=== PATIENT | male | born 1930 | race Caucasian/White ===

== ENCOUNTER 2017-07-20 19:33 | Emergency (ER) | payer OTHER ==
--- NOTE | 2017-07-20 19:40 | PDOC ---
History of Present Illness - General History Source: Patient Exam Limitations: No Limitations - History of Present Illness Initial Comments: 07/20/17 19:55 The patient is a 87 year old male with a significant past medical history of prostate CA, HTN, who presents to the ED with right eye irritation. Patient states the eye feels funny. Son noted abnormal appearing area under the eye. He suggested his father to come into the ED for evaluation. Denies tearing, discharge, crusting. Patient denies fever, chills, cough, nausea, vomiting, diarrhea. Takes a baby aspirin every morning. OD: 20/40 with glasses OS: 20/40 with glasses <Chalo Fisher - Last Filed: 07/20/17 20:05> <Heidi Angel - Last Filed: 07/24/17 03:34> - General Chief Complaint: Eye Problem Stated Complaint: C/O SWELLING TO LEFT EYE Time Seen by Provider: 07/20/17 19:35 Past History <Chalo Fisher - Last Filed: 07/20/17 20:05> - Past Medical History Cardiac Disorders: Yes HTN: Yes Hypercholesterolemia: Yes - Psycho/Social/Smoking Cessation Hx Suicidal Ideation: No Smoking Status: No Number of Cigarettes Smoked Daily: 0 <Heidi Angel - Last Filed: 07/24/17 03:34> - Past Medical History Allergies/Adverse Reactions: Allergies Allergy/AdvReac Type Severity Reaction Status Date / Time No Known Allergies Allergy Verified 07/20/17 19:35 Home Medications: Ambulatory Orders Unobtainable [Unobtainable] 07/20/17 Review of Systems - Review of Systems Able to Perform ROS?: Yes Comments:: 07/20/17 19:55 GENERAL/CONSTITUTIONAL: No fever or chills. No weakness. HEAD, EYES, EARS, NOSE AND THROAT: + right eye discomfort. No ear pain or discharge. No sore throat. CARDIOVASCULAR: No chest pain or shortness of breath. RESPIRATORY: No cough, wheezing, or hemoptysis. GASTROINTESTINAL: No nausea, vomiting, diarrhea or constipation. GENITOURINARY: No dysuria, frequency, or change in urination. MUSCULOSKELETAL: No joint or muscle swelling or pain. No neck or back pain. SKIN: No rash NEUROLOGIC: No headache, vertigo, loss of consciousness, or change in strength/ sensation. ENDOCRINE: No increased thirst. No abnormal weight change. HEMATOLOGIC/LYMPHATIC: No anemia, easy bleeding, or history of blood clots. ALLERGIC/IMMUNOLOGIC: No hives or skin allergy. <Chalo Fisher - Last Filed: 07/20/17 20:05> *Physical Exam - Vital Signs Last Vital Signs Temp Pulse Resp BP Pulse Ox 98 F 80 16 179/94 93 L 07/20/17 19:37 07/20/17 19:37 07/20/17 19:37 07/20/17 19:37 07/20/17 19:37 - Physical Exam Comments: 07/20/17 19:56 GENERAL: The patient is awake, alert, and fully oriented, in no acute distress. HEAD:[Normal with no signs of trauma. EYES: Subconjunctival hemorrhage of the lateral aspect of the right eye. Pupils equal, round and reactive to light, extraocular movements intact, sclera anicteric. EXTREMITIES: Normal range of motion, no edema. NEUROLOGICAL: Normal speech, normal gait. PSYCH: Normal mood, normal affect. SKIN: Warm, Dry, normal turgor, no rashes or lesions noted. <Chalo Fisher - Last Filed: 07/20/17 20:05> Medical Decision Making - Medical Decision Making Documentation has been prepared under my direction and personally reviewed by me in its entirety. I attest that this documented accurately reflects all work, treatment, procedures and medical decision making performed by me. As noted above, this 87-year-old man presents with a sub-conjunctival hemorrhage in his eye. There is no other abnormality seen on exam and patient has no other complaints. Patient was discharged with instructions to continue artificial tears to the eye and to follow-up with field crop grower (Dr. Chanel/Dr. Nix group) within 3 days <Heidi Angel - Last Filed: 07/24/17 03:34> *DC/Admit/Observation/Transfer - Attestations Scribe Attestion: 07/20/17 19:56 Documentation prepared by Chalo Fisher, acting as medical biller for Heidi Angel MD. <Chalo Fisher - Last Filed: 07/20/17 20:05> <Heidi Angel - Last Filed: 07/24/17 03:34> Diagnosis at time of Disposition: Subconjunctival hemorrhage of right eye - Discharge Dispostion Disposition: HOME Condition at time of disposition: Stable - Referrals Referrals: Nacho Weiss MD [Primary Care Provider] - Kuldeep Chanel MD [Staff Physician] - 3 days - Patient Instructions Printed Discharge Instructions: DI for Subconjunctival Hemorrhage Additional Instructions: Artificial tears to both eyes twice a day Can also use cool compresses to the outside of the eyes as needed for discomfort Follow-up with field crop grower (Dr. Chanel/Dr. Nix) within 3 days Return to ER if you have worsening pain/difficulty with vision/discharge or crusting in eyes
[2017-07-20 19:41] VITALS: BP 179/94; PULSE 80; TEMP 98; BMI 25.6
[2017-07-20] MEDS ORDERED: TETRACAINE 0.5% OPHTH SOLN 2 ML BOTTLE ONE (19:53)
[2017-07-20] MEDS ORDERED: FLUORESCEIN NA 1 EA STRIP ONE (19:54)
== END 2017-07-20 20:21 | disposition home or self-care (01) ==
LOC: FER 19:33
DX: H11.31 Conjunctival hemorrhage, right eye (principal); Z85.46 Personal history of malignant neoplasm of prostate; I10 Essential (primary) hypertension; E78.00 Pure hypercholesterolemia, unspecified
CPT/HCPCS: 99281-25

== ENCOUNTER 2018-02-16 17:05 | Inpatient (IN) | payer OTHER ==
--- NOTE | 2018-02-16 17:18 | PDOC ---
History of Present Illness - General Chief Complaint: Altered Mental Status Stated Complaint: AMS Time Seen by Provider: 02/16/18 17:15 History Source: Patient - History of Present Illness Initial Comments: 02/16/18 17:49 44 y.o. male with a PMH of HTN, Prostate CA (currently receiving hormone therapy ) presents to the ED with family c/o 3 day h/o increased AMS. As per patient's daughter in law @ bedside, patient has been confused for the past three days and this morning at 3 a.m. patient's son found him standing up, smacking his lips and confused as to who he was and where he was. At presentation patient has remote history intact (can recall spouse name, anniversary, names of grandchildren) but non-intact recent memory including what he ate for breakfast, the name of President, why he is at the hospital. ROS is positive for cough with pinkish sputum and daughter in law notes decreased appetite however no weight loss. Patient denies any recent trauma, fever/chills, chest pain, shortness of breath , abdominal pain, nausea/vomiting, constipation/diarrhea, dysuria/hematuria as well as recent travel or sick contacts. NKDA Social: previous nicotine use (40+ years of 2+ ppd), denies alcohol, denies recreational drugs PMD: Dr. Weiss 02/16/18 19:15 Past History - Past Medical History Allergies/Adverse Reactions: Allergies Allergy/AdvReac Type Severity Reaction Status Date / Time No Known Allergies Allergy Verified 02/16/18 17:06 Home Medications: Ambulatory Orders Hydrochlorothiazide [Hctz -] 25 mg PO DAILY 02/16/18 Lisinopril 10 mg PO DAILY 02/16/18 Verapamil HCl [Verapamil ER] 240 mg PO DAILY 02/16/18 Cardiac Disorders: Yes HTN: Yes Hypercholesterolemia: Yes - Suicide/Smoking/Psychosocial Hx Smoking Status: No Smoking History: Never smoked Have you smoked in the past 12 months: No Number of Cigarettes Smoked Daily: 0 Hx Alcohol Use: No Drug/Substance Use Hx: No Substance Use Type: None Review of Systems - Review of Systems Constitutional: No: Chills, Fever HEENTM: No: Recent change in vision Respiratory: Yes: Cough (productive, pinkish sputum). No: Shortness of Breath, Stridor, Wheezing Cardiac (ROS): No: Chest Pain, Lightheadedness, Palpitations, Syncope ABD/GI: No: Constipated, Diarrhea, Nausea, Vomiting : No: Burning, Dysuria Neurological: No: Headache, Numbness, Tingling, Ataxia, Dizziness *Physical Exam - Physical Exam General Appearance: Yes: Nourished, Thin HEENT: positive: EOMI, PARKER Neck: positive: Trachea midline, Supple Respiratory/Chest: positive: Lungs Clear. negative: Labored Respiration, Rapid RR Cardiovascular: positive: S1, S2. negative: Edema, JVD Gastrointestinal/Abdominal: positive: Normal Bowel Sounds, Soft. negative: Distended, Guarding, Rebound, Tenderness, Hernia, Mass Musculoskeletal: negative: CVA Tenderness (R), CVA Tenderness (L) Extremity: positive: Normal Capillary Refill, Normal Inspection. 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 male presents with AMS. On PE patient is pleasant, alert, with remote history intact but confused about why he is at the hospital and cannot recall basic details of his daily life. DDX includes TIA, brain bleed, electrolyte derangement, malignancy. Will obtain Head CT, CXR, EKG, CBC, CMP, Mg, UA/Urine culture. 02/16/18 19:[address] shows areas of vasogenic edema in L frontal and R parietal lobe c/w likely brain mets. Labs pending. Likely disposition is admission to inpatient medicine service for MRI. Neurology consult pending. Patient and patient's daughter in law @ bedside counseled on POC. Patient signed out to Dr. Gandhi (Attending) *DC/Admit/Observation/Transfer Diagnosis at time of Disposition: Altered mental status - Referrals - Patient Instructions - Post Discharge Activity
--- NOTE | 2018-02-16 18:58 | PDOC ---
Attending Attestation - Resident Resident Name: Sarah Barber - ED Attending Attestation I have performed the following: I have examined & evaluated the patient, The case was reviewed & discussed with the resident, I agree w/resident's findings & plan, Exceptions are as noted - HPI HPI: 02/16/18 18:57 Mr Gillespie is an 87-year-old male presented to the emergency department with a complaint of confusion with family member. No trauma. No fevers or chills. No headache. Patient is infiltrated his baseline. No prior episodes like this - Physicial Exam PE: 02/16/18 18:58 Physical Exam General Appearance: Yes: Nourished, Thin HEENT: positive: EOMI, PARKER Neck: positive: Trachea midline, Supple Respiratory/Chest: positive: Lungs Clear. negative: Labored Respiration, Rapid RR Cardiovascular: positive: S1, S2. negative: Edema, JVD Gastrointestinal/Abdominal: positive: Normal Bowel Sounds, Soft. negative: Distended, Guarding, Rebound, Tenderness, Hernia, Mass Musculoskeletal: negative: CVA Tenderness (R), CVA Tenderness (L) Extremity: positive: Normal Capillary Refill, Normal Inspection. 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
[2018-02-16 19:03] LABS: BASO % 0.5 % (0-2.0); EOS % 3.5 % (0-4.5); HEMATOCRIT 37.8 % (35.4-49); LYMPH % 19.7 % (8-40); MCH 28.2 pg (25.7-33.7); MCHC 34.3 g/dl (32.0-35.9); MEAN CELL VOLUME 82.1 fl (80-96); NEUT % 68.3 % (42.8-82.8); PLATELET COUNT 333 K/MM3 (134-434); RBC 4.61 M/mm3 (4.00-5.60); RDW 12.9 % (11.9-15.9); WHITE BLOOD COUNT 10.7 K/mm3 (4.0-10.8)
[2018-02-16 19:11] LABS: ALBUMIN 3.5 g/dl (3.5-5.0); ALK PHOS 80 U/L (32-92); ANION GAP 6 (8-16); BILIRUBIN,TOTAL 0.6 mg/dl (0.2-1.0); BLOOD UREA NITROGEN 22 mg/dl (7-18); CALCIUM 8.9 mg/dl (8.4-10.2); CHLORIDE 100 mmol/L (98-107); CO2 28 mmol/L (22-28); CREATININE 0.9 mg/dl (0.6-1.3); GLUCOSE,RANDOM 105 mg/dl (74-106); POTASSIUM 3.3 mmol/L (3.5-5.1); SGOT/AST 16 U/L (10-42); SGPT/ALT 9 U/L (10-40); SODIUM 134 mmol/L (136-145); TOT PROT 6.6 g/dl (6.4-8.3)
[2018-02-16 19:23] LABS: PH,URINE 5.5 (4.5-8); URINE APPEARANCE Clear; URINE BILIRUBIN Negative (NEGATIVE); URINE BLOOD Trace-intact (NEGATIVE); URINE GLUCOSE (UA) Negative (NEGATIVE); URINE KETONE Negative (NEGATIVE); URINE LEUK ESTERASE Negative (NEGATIVE); URINE NITRITE Negative (NEGATIVE); URINE PROTEIN Negative (NEGATIVE); URINE UROBILINOGEN 0.2 (0.2-1.0)
[2018-02-16 19:24] LABS: URINE COLOR YELLOW
--- NOTE | 2018-02-16 19:31 | HP ---
Admitting History and Physical - Primary Care Physician PCP: Nacho Weiss - Admission Chief Complaint: AMS History of Present Illness: This is a 87 y/o man with a PMHx of HTN, Prostate Ca (hormone therapy). Who presents to the ED with family for AMS. Per family, the patient has not been acting like his baseline, increased confusion. At bedside, patient is alert to name, birthdate, place only. Patient denies fever, chills, cough, SOB, CP, palpitations, CP, AP, N/V/D, constipation , dysuria. History Source: Family Member, Medical Record Limitations to Obtaining History: Clinical Condition - Past Medical History Cardiovascular: Yes: HTN Renal/: Yes: Cancer (Prostate (Hormone Therapy)) - Smoking History Smoking history: Never smoked Have you smoked in the past 12 months: No Aproximately how many cigarettes per day: 0 If you are a former smoker, when did you quit?: 1979- - Alcohol/Substance Use Hx Alcohol Use: No History of Substance Use: reports: None - Social History Usual Living Arrangement: Yes: With Child ADL: Family Assistance History of Recent Travel: No Home Medications - Allergies Allergies/Adverse Reactions: Allergies Allergy/AdvReac Type Severity Reaction Status Date / Time No Known Allergies Allergy Verified 02/16/18 17:06 - Home Medications Home Medications: Ambulatory Orders Hydrochlorothiazide [Hctz -] 25 mg PO DAILY 02/16/18 Lisinopril 10 mg PO DAILY 02/16/18 Verapamil HCl [Verapamil ER] 240 mg PO DAILY 02/16/18 Family Disease History - Family Disease History Family History: Unable to Obtain Review of Systems Unable to obtain ROS, reason: AMS Physical Examination Vital Signs: Vital Signs Temperature 98.7 F 02/16/18 17:05 Pulse Rate 88 02/16/18 17:05 Respiratory Rate 20 02/16/18 17:05 Blood Pressure 167/93 02/16/18 17:05 O2 Sat by Pulse Oximetry (%) 98 02/16/18 17:05 Constitutional: Yes: No Distress, Calm, Thin Eyes: Yes: WNL, Conjunctiva Clear, EOM Intact, PERRL HENT: Yes: WNL, Atraumatic, Normocephalic Neck: Yes: WNL, Supple, Trachea Midline Cardiovascular: Yes: WNL, Regular Rate and Rhythm, S1, S2 Respiratory: Yes: Diminished Labs: CBC, BMP 02/16/18 18:42 02/16/18 18:42 Hospitalist Screening - Colonoscopy Questionnaire Colonoscopy Questionnaire: Colonoscopy Questionnaire
[2018-02-16 22:29] LABS: URINE BACTERIA FEW /hpf (NEGATIVE); URINE WBC 0-2 (0-2)
[2018-02-16 23:16] VITALS: BMI 23.0
[2018-02-17] MEDS ORDERED: CEFTRIAXONE 1 G/50 ML PREMIX 50 ML IVPB ONE (08:00)
[2018-02-17] MEDS ORDERED: AZITHROMYCIN IVPB 250 ML IVPB ONE (08:00)
[2018-02-17 08:42] LABS: BASO % 0.6 % (0-2.0); EOS % 3.7 % (0-4.5); HEMATOCRIT 36.5 % (35.4-49); HEMOGLOBIN 12.5 GM/dl (11.7-16.9); LYMPH % 19.1 % (8-40); MCH 28.5 pg (25.7-33.7); MCHC 34.3 g/dl (32.0-35.9); MEAN CELL VOLUME 82.9 fl (80-96); MEAN PLT VOLUME 7.2 fl (7.5-11.1); MONO % 7.7 % (3.8-10.2); NEUT % 68.9 % (42.8-82.8); PLATELET COUNT 313 K/MM3 (134-434); RBC 4.41 M/mm3 (4.00-5.60); RDW 12.9 % (11.9-15.9); WHITE BLOOD COUNT 9.2 K/mm3 (4.0-10.8)
[2018-02-17 08:43] LABS: ANION GAP 5 (8-16); BLOOD UREA NITROGEN 19 mg/dl (7-18); CALCIUM 8.6 mg/dl (8.4-10.2); CHLORIDE 103 mmol/L (98-107); CO2 27 mmol/L (22-28); CREATININE 0.9 mg/dl (0.6-1.3); GLUCOSE,RANDOM 97 mg/dl (74-106); POTASSIUM 3.5 mmol/L (3.5-5.1); SODIUM 135 mmol/L (136-145)
--- NOTE | 2018-02-17 09:30 | PN ---
Progress Note (short form) - Note Progress Note: ID Consult dictated 87 year old male, heavy tobacco use hx, admitted from home with 3d hx altered mental status. CT head shows areas of vasogenic edema L frontal , R parietal lobes suggestive of brain mets. Family reports + cough, pinkish sputum. + rales R base CXR R basilar consolidation v. mass ? Metastatic lung ca ? post obstructive pneumonia Await c/s CT chest Neuro evaluation Empiric ceftriaxone
--- NOTE | 2018-02-17 10:30 | CONS ---
DATE OF CONSULTATION: 02/17/2018 HISTORY OF PRESENT ILLNESS: The patient is an 87-year-old male evaluated for possible right lower lobe pneumonia. History was obtained from the chart and patient, who gives a limited history. He was admitted to the hospital from home on February 16, 2018, with reports of altered mental status for 3 days prior to admission. Family also reports that he had a cough which was productive of pinkish sputum as well as anorexia. He was evaluated in the emergency room, where CT scan of the head showed vasogenic edema involving the left temporal and right parietal lobes suggestive of metastatic lesions in the brain. Chest x-ray showed increased markings at the right base consistent with consolidation. He was empirically treated with Zithromax and ceftriaxone. He is awake and alert. He offers no focal complaint. He denies any headache. No complains of chest pain, shortness of breath, cough, or sputum production. Denies vomiting or diarrhea. No complaints of dysuria or hematuria. On questioning, the patient is oriented to person. He states the year is 1917, and he was unaware of the name of the hospital. Stated he lived with his mother and father. PAST MEDICAL HISTORY: Positive for prostate cancer, hypertension, coronary artery disease, hyperlipidemia. ALLERGIES: No known allergies. MEDICATIONS: Hydrochlorothiazide, lisinopril, verapamil. SOCIAL HISTORY: Lives at home with family members. According to the notes, long history of tobacco use, 40-year history of 2 packs per day. No documented history of alcohol abuse or illicit drug use. SYSTEMS REVIEW: Neurologic: As per HPI. Cardiac: Negative for chest pain or palpitations. Respiratory: As per HPI. Gastrointestinal: Negative for vomiting or diarrhea. Genitourinary: Negative for urinary tract infection. LABORATORY DATA: White count 9.2, 68 neutrophils, 19 lymphocytes, 7 monocytes, hematocrit 36.5, platelet count 313. BUN 19, creatinine 0.9. Urinalysis 0-2 white cells. Blood and urine cultures are pending. Chest x-ray shows a density at the right base consistent with consolidated lung versus mass lesion. CT scan of the head shows vasogenic edema involving the left temporal and right parietal lobes. There appears to be a mass present in the left temporal lobe. PHYSICAL EXAMINATION: General: He is awake and alert. He is not acutely toxic-appearing. Vital signs: Temperature 97.8, blood pressure 142/74, pulse 87 and regular, respirations 18 per minute. HEENT: Sclerae anicteric. Neck: Supple. Heart: Heart sounds S1, S2. Lungs: Rales at the right base. A few crepitations, left base. Abdomen: Soft. No tenderness elicited. No mass, rebound, or rigidity. Extremities: Negative for edema. IMPRESSION: An 87-year-old male with a history of heavy tobacco use admitted from home with a 3-day history of altered mental status. CT scan shows areas of vasogenic edema involving the left frontal and right parietal lobes suggestive of brain metastases. 1. 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 2. Right lower lobe infiltrate versus mass. Await culture results, obtain CT scan of the chest, neurology evaluation, empiric ceftriaxone, pending sepsis workup. Will follow. Thank you for the kind referral. KEON ARAIZA M.D. JOSE [id number]
--- NOTE | 2018-02-17 11:51 | HP ---
CHIEF COMPLAINT: PCP: HISTORY OF PRESENT ILLNESS: ER course was notable for: (1) (2) (3) Recent Travel: PAST MEDICAL HISTORY: PAST SURGICAL HISTORY: Social History: Smoking: Alcohol: Drugs: Family History: Allergies No Known Allergies Allergy (Verified 02/16/18 17:06) HOME MEDICATIONS: 3 Medication Instructions Recorded Hydrochlorothiazide [Hctz -] 25 mg PO DAILY 02/16/18 Lisinopril 10 mg PO DAILY 02/16/18 Verapamil HCl [Verapamil ER] 240 mg PO DAILY 02/16/18 REVIEW OF SYSTEMS CONSTITUTIONAL: Absent: fever, chills, diaphoresis, generalized weakness, malaise, loss of appetite, weight change HEENT: Absent: rhinorrhea, nasal congestion, throat pain, throat swelling, difficulty swallowing, mouth swelling, ear pain, eye pain, visual changes CARDIOVASCULAR: Absent: chest pain, syncope, palpitations, irregular heart rate, lightheadedness , peripheral edema RESPIRATORY: Absent: cough, shortness of breath, dyspnea with exertion, orthopnea, wheezing, stridor, hemoptysis GASTROINTESTINAL: Absent: abdominal pain, abdominal distension, nausea, vomiting, diarrhea, constipation, melena, hematochezia GENITOURINARY: Absent: dysuria, frequency, urgency, hesitancy, hematuria, flank pain, genital pain MUSCULOSKELETAL: Absent: myalgia, arthralgia, joint swelling, back pain, neck pain SKIN: Absent: rash, itching, pallor HEMATOLOGIC/IMMUNOLOGIC: Absent: easy bleeding, easy bruising, lymphadenopathy, frequent infections ENDOCRINE: Absent: unexplained weight gain, unexplained weight loss, heat intolerance, cold intolerance NEUROLOGIC: Absent: headache, focal weakness or paresthesias, dizziness, unsteady gait, seizure, mental status changes, bladder or bowel incontinence PSYCHIATRIC: Absent: anxiety, depression, suicidal or homicidal ideation, hallucinations. PHYSICAL EXAMINATION Vital Signs - 24 hr 3 02/16/18 02/16/18 02/17/18 17:05 22:25 05:40 Temperature 98.7 F 97.4 F L 97.8 F Pulse Rate 88 90 87 Respiratory 20 16 18 Rate Blood Pressure 167/93 159/75 142/74 O2 Sat by Pulse 98 97 94 L Oximetry (%) GENERAL: Awake, alert, and fully oriented, in no acute distress. HEAD: Normal with no signs of trauma. EYES: Pupils equal, round and reactive to light, extraocular movements intact, sclera anicteric, conjunctiva clear. No lid lag. EARS, NOSE, THROAT: Ears normal, nares patent, oropharynx clear without exudates. Moist mucous membranes. NECK: Normal range of motion, supple without lymphadenopathy, JVD, or masses. LUNGS: Breath sounds equal, clear to auscultation bilaterally. No wheezes, and no crackles. No accessory muscle use. HEART: Regular rate and rhythm, normal S1 and S2 without murmur, rub or gallop. ABDOMEN: Soft, nontender, not distended, normoactive bowel sounds, no guarding, no rebound, no masses. No hepatomegaly or splenomegaly. MUSCULOSKELETAL: Normal range of motion at all joints. No bony deformities or tenderness. No CVA tenderness. UPPER EXTREMITIES: 2+ pulses, warm, well-perfused. No cyanosis. No clubbing. No peripheral edema. LOWER EXTREMITIES: 2+ pulses, warm, well-perfused. No calf tenderness. No peripheral edema. NEUROLOGICAL: Cranial nerves II-XII intact. Normal speech. Normal gait. PSYCHIATRIC: Cooperative. Good eye contact. Appropriate mood and affect. SKIN: Warm, dry, normal turgor, no rashes or lesions noted, normal capillary refill. Laboratory Results - last 24 hr 3 02/16/18 02/16/18 02/16/18 18:42 18:42 18:56 WBC 10.7 RBC 4.61 Hgb 13.0 Hct 37.8 MCV 82.1 MCH 28.2 MCHC 34.3 RDW 12.9 Plt Count 333 MPV 7.0 L Neutrophils % 68.3 Lymphocytes % 19.7 Monocytes % 8.0 Eosinophils % 3.5 Basophils % 0.5 Sodium 134 L Potassium 3.3 L Chloride 100 Carbon Dioxide 28 Anion Gap 6 L BUN 22 H Creatinine 0.9 Creat Clearance w eGFR > 60 Random Glucose 105 Calcium 8.9 Total Bilirubin 0.6 AST 16 ALT 9 L Alkaline Phosphatase 80 Ammonia Total Protein 6.6 Albumin 3.5 Urine Color Yellow Urine Appearance Clear Urine pH 5.5 Ur Specific [place] 1.020 Urine Protein Negative Urine Glucose (UA) Negative Urine Ketones Negative Urine Blood Trace-intact H Urine Nitrite Negative Urine Bilirubin Negative Urine Urobilinogen 0.2 Ur Leukocyte Esterase Negative Urine RBC 2-5 Urine WBC 0-2 Urine Bacteria Few 3 02/17/18 02/17/18 02/17/18 07:20 08:00 08:00 WBC 9.2 RBC 4.41 Hgb 12.5 Hct 36.5 MCV 82.9 MCH 28.5 MCHC 34.3 RDW 12.9 Plt Count 313 MPV 7.2 L Neutrophils % 68.9 Lymphocytes % 19.1 Monocytes % 7.7 Eosinophils % 3.7 Basophils % 0.6 Sodium 135 L Potassium 3.5 Chloride 103 Carbon Dioxide 27 Anion Gap 5 L BUN 19 H Creatinine 0.9 Creat Clearance w eGFR Random Glucose 97 Calcium 8.6 Total Bilirubin AST ALT Alkaline Phosphatase Ammonia 40.23 H Total Protein Albumin Urine Color Urine Appearance Urine pH Ur Specific [place] Urine Protein Urine Glucose (UA) Urine Ketones Urine Blood Urine Nitrite Urine Bilirubin Urine Urobilinogen Ur Leukocyte Esterase Urine RBC Urine WBC Urine Bacteria ASSESSMENT/PLAN: Hospitalist Screening - Colonoscopy Questionnaire Colonoscopy Questionnaire: Colonoscopy Questionnaire
--- NOTE | 2018-02-17 11:52 | PN ---
Physical Exam: SUBJECTIVE: Patient seen and examined. Remains confused at times. Son reports he has been fidgety with his hands and has had a cough x 1.5 weeks. OBJECTIVE: Vital Signs - 24 hr 3 02/16/18 02/16/18 02/17/18 17:05 22:25 05:40 Temperature 98.7 F 97.4 F L 97.8 F Pulse Rate 88 90 87 Respiratory 20 16 18 Rate Blood Pressure 167/93 159/75 142/74 O2 Sat by Pulse 98 97 94 L Oximetry (%) GENERAL: The patient is awake, alert, and oriented to person and hospital, but not which one. Knows year but not month or season. in no acute distress. HEAD: Normal with no signs of trauma. EYES: PERRL, extraocular movements intact, sclera anicteric, conjunctiva clear. No ptosis. ENT: Ears normal, nares patent, oropharynx clear without exudates, moist mucous membranes. NECK: Trachea midline, full range of motion, supple. LUNGS: Crackles right base, + mild expiratory wheezing right lower lung. no accessory muscle use. HEART: Regular rate and rhythm, S1, S2 without murmur, rub or gallop. ABDOMEN: Soft, nontender, nondistended, normoactive bowel sounds, no guarding, no rebound, no hepatosplenomegaly, no masses. EXTREMITIES: 2+ pulses, warm, well-perfused, no edema. NEUROLOGICAL: Cranial nerves II through XII grossly intact. Normal speech, gait not observed. PSYCH: Normal mood, normal affect. SKIN: Warm, dry, normal turgor, no rashes or lesions noted Laboratory Results - last 24 hr 3 02/16/18 02/16/18 02/16/18 18:42 18:42 18:56 WBC 10.7 RBC 4.61 Hgb 13.0 Hct 37.8 MCV 82.1 MCH 28.2 MCHC 34.3 RDW 12.9 Plt Count 333 MPV 7.0 L Neutrophils % 68.3 Lymphocytes % 19.7 Monocytes % 8.0 Eosinophils % 3.5 Basophils % 0.5 Sodium 134 L Potassium 3.3 L Chloride 100 Carbon Dioxide 28 Anion Gap 6 L BUN 22 H Creatinine 0.9 Creat Clearance w eGFR > 60 Random Glucose 105 Calcium 8.9 Total Bilirubin 0.6 AST 16 ALT 9 L Alkaline Phosphatase 80 Ammonia Total Protein 6.6 Albumin 3.5 Urine Color Yellow Urine Appearance Clear Urine pH 5.5 Ur Specific [place] 1.020 Urine Protein Negative Urine Glucose (UA) Negative Urine Ketones Negative Urine Blood Trace-intact H Urine Nitrite Negative Urine Bilirubin Negative Urine Urobilinogen 0.2 Ur Leukocyte Esterase Negative Urine RBC 2-5 Urine WBC 0-2 Urine Bacteria Few 3 02/17/18 02/17/18 02/17/18 07:20 08:00 08:00 WBC 9.2 RBC 4.41 Hgb 12.5 Hct 36.5 MCV 82.9 MCH 28.5 MCHC 34.3 RDW 12.9 Plt Count 313 MPV 7.2 L Neutrophils % 68.9 Lymphocytes % 19.1 Monocytes % 7.7 Eosinophils % 3.7 Basophils % 0.6 Sodium 135 L Potassium 3.5 Chloride 103 Carbon Dioxide 27 Anion Gap 5 L BUN 19 H Creatinine 0.9 Creat Clearance w eGFR Random Glucose 97 Calcium 8.6 Total Bilirubin AST ALT Alkaline Phosphatase Ammonia 40.23 H Total Protein Albumin Urine Color Urine Appearance Urine pH Ur Specific [place] Urine Protein Urine Glucose (UA) Urine Ketones Urine Blood Urine Nitrite Urine Bilirubin Urine Urobilinogen Ur Leukocyte Esterase Urine RBC Urine WBC Urine Bacteria Active Medications 3 Generic Name Dose Route Start Last Admin Trade Name Freq PRN Reason Stop Dose Admin Azithromycin 250 mls @ 250 mls/hr 02/18/18 10:00 Zithromax 500mg Ivpb (Pre-Docked) IVPB DAILY [facility] CEFTRIAXONE 1 G/50 ML PREMIX 50 mls @ 100 mls/hr 02/18/18 10:00 Ceftriaxone 1 Gm-D5w Bag IVPB DAILY [facility] Radiology Reports CT head IMPRESSION: Areas of vasogenic edema within the left frontal and right parietal lobes consistent with intracerebral mass lesions, probably metastatic in nature. MRI follow-up recommended. Please see above discussion. Reported By: Olu Springer MD 02/16/181820 Chest xray IMPRESSION: Right lower lobe consolidation Reported By: Olu Springer MD 02/16/181824 ASSESSMENT/PLAN: 87yM with PMH HTN and prostate CA (on hormone therapy) presented to the ED with AMS and cough x 1.5 weeks. Pneumonia vs RLL mass - Cont empiric ceftriaxone and zithromax - CT chest - nebs PRN - ID consult appreciated Brain mets - MRI brain ordered - neuro consult pending HTN - cont home meds DVT PPX - heparin 5000u BID FEN - hold IVF, tolerating po - BMP in am - low sodium diet as tolerated. Dispo: Pt currently requires further inpatient management of his emergent condition. Visit type - Emergency Visit Emergency Visit: Yes ED Registration Date: 02/16/18 Care time: The patient presented to the Emergency Department on the above date and was hospitalized for further evaluation of their emergent condition. - New Patient This patient is new to me today: Yes Date on this admission: 02/17/18 - Critical Care Critical Care patient: No - Discharge Referral Referred to [facility] Med P.C.: No
--- NOTE | 2018-02-17 11:59 | CONSULT ---
Admitting History and Physical - Primary Care Physician PCP: Chioma Dumont - Admission History of Present Illness: 87 year old male, heavy tobacco use hx,admitted from home with altered mental status. CT head suggestive of brain mets. MRI 4 lesions, largest Left frontal with edema CXR R basilar consolidation v. mass CT chest large RLL mass History Source: Medical Record Limitations to Obtaining History: Clinical Condition - Past Medical History Cardiovascular: Yes: HTN Renal/: Yes: Cancer (Prostate (Hormone Therapy)) - Advance Directives Advance Directives: Yes: Health Care Proxy - Smoking History Aproximately how many cigarettes per day: 0 If you are a former smoker, when did you quit?: 1979- - Alcohol/Substance Use Hx Alcohol Use: No History of Substance Use: reports: None - Social History Usual Living Arrangement: Yes: With Child ADL: Family Assistance History of Recent Travel: No History - Admission Reason For Visit: AMS - Diagnostics CT Scan: Report Reviewed (CT head shows areas of vasogenic edema L frontal , R parietal lobes suggestive of brain mets.) - General Mental Status: Awake and Alert, Able to Follow Commands, Vague, Confused (vs Aphasia and/or confusion.) Attention: Intact Ability to Follow Directions: Fair Head/Neck Control: WFL - Hearing Hearing: Normal Hearing Aide: No With Patient: No Speech Evaluation - Communication Primary Language: SOMALI Communication: Yes: Simple Responses Oral Expression Ability: Yes: Moderate Impairment (Anomia, paraphasic errors, perseveration. r/o Aphasia.) - Speech Production Apraxia: No Able to Make Needs Known: Yes: Moderately Impaired Intelligibility: Yes: WNL - Speech Characteristics Voice Loudness: Normal Voice Phonatory-based Quality: Yes: Normal Speech Pattern: Normal Speech Clarity: < 100% Nasal Resonance: Normal Articulation: Yes: Precise - Language/Auditory Comprehension Follows: Yes: 1 Stage Simple Commands Observation: Able to respond to yes/no queries: No (inconsistent and unreliable 70% accurate on simple level), Yes/No Confusion: Yes, Comprehends Conversational Speech: Yes (simple, not longer sentences), Benefits from Slow Speech: Yes, Benefits from Repetiton: Yes - Language/Verbal Expression Aphasia: Yes: Anomia, Paraphrasic Errors Able to Respond to Simple Queries: Yes: Moderately Impaired Able to Communicate Wants and Needs: Yes: Moderately Impaired Functional Communication Status: Yes: Mildly Impaired, Moderately Impaired Aware of Errors: No Attempts to Correct Errors: No - Swallow Evaluation/Bedside Assessment Current Nutritional Intake: Regular, Thin Liquids Oral Secretions: Yes: WFL Dentition: Yes: Adequate Facial Symmetry at Rest: Symmetrical Against Resistance Opening: Normal Against Resistance Closing: Normal Pucker Lips: Normal Smile: Normal Lingual Movement: Normal, Symmetric Lingual Speed of Movement: Normal Lingual Movement Strgth Against Opposition: Normal Lingual Movement Characteristics: Normal Velopharyngeal Movement: Normal Laryngeal Elevation: WFL Laryngeal Movement: Able to Palpate Rate of Intake: WFL Bolus Size: WFL Labial Seal: WFL Chewing: WFL Oral Prep Time: WFL A-P Transit: WFL Pocketing: None Timing of Swallow: WFL Coughing/Throat Clear: No Change in Voice: No Recommendations - Speech Evaluation, Impression/Plan Impression: Aphasia suspected with anomia, word errors,incomplete sentences. Limited errors awareness. Gives up frequently. Follows simple commands but not 2 stage. Yes/no confusion. Does better when told to stop and listen before responding. +/- confusion.He may be confused but language deficits are greater deficit adversely affecting communication. Swallowing intact - Disposition Discharge to: Home with Assist (Pt will benefit from speech tx upon d/c. Homecare.) - Dysphagia Impressions/Plan Swallowing Skills: [facility] Dysphagia Impressions: No Impairment *Silent aspiration: cannot be R/O at bedside - Recommendations Diet Consistency: Regular Medication Administration: Whole with water Liquids: Thin Liquids
--- NOTE | 2018-02-17 17:44 | CON.NEURO ---
Consult - Past Medical History Cardio/Vascular: Yes: HTN Renal/: Yes: Cancer (Prostate (Hormone Therapy)) - Alcohol/Substance Use Hx Alcohol Use: No History of Substance Use: reports: None - Smoking History Smoking history: Never smoked Have you smoked in the past 12 months: No Aproximately how many cigarettes per day: 0 If you are a former smoker, when did you quit?: 1979- - Social History ADL: Family Assistance History of Recent Travel: No Home Medications - Allergies Allergies/Adverse Reactions: Allergies Allergy/AdvReac Type Severity Reaction Status Date / Time No Known Allergies Allergy Verified 02/16/18 17:06 - Home Medications Home Medications: Ambulatory Orders Hydrochlorothiazide [Hctz -] 25 mg PO DAILY 02/16/18 Lisinopril 10 mg PO DAILY 02/16/18 Verapamil HCl [Verapamil ER] 240 mg PO DAILY 02/16/18 Physical Exam-Neuro Vital Signs: Vital Signs Temperature 97.8 F 02/17/18 14:01 Pulse Rate 88 02/17/18 14:01 Respiratory Rate 16 02/17/18 14:01 Blood Pressure 128/69 02/17/18 14:01 O2 Sat by Pulse Oximetry (%) 92 L 02/17/18 14:01 Labs: CBC, BMP 02/17/18 08:00 02/17/18 08:00 Assessment/Plan CC brain mets HPI 87 Year old male history of HTN, prostate cancer, skin cancer, and he was brought to hospital for confusion and found to have brain mets. He also possible lung ca. Patient has no acute distress and was not able to provide hisory. He has no seizure. he deneis any headache. Past Medical History as above No toxic habits - Allergies Allergies/Adverse Reactions: Allergies Allergy/AdvReac Type Severity Reaction Status Date / Time No Known Allergies Allergy Verified 02/16/18 17:06 - Home Medications Home Medications: Ambulatory Orders Hydrochlorothiazide [Hctz -] 25 mg PO DAILY 02/16/18 Lisinopril 10 mg PO DAILY 02/16/18 Verapamil HCl [Verapamil ER] 240 mg PO DAILY 02/16/18 ROS, FH, SH reviwed in chart Neurological Examination Alert oriented x 0 he think it is 1919 and he is in restaurant he denies any headahce, he is able to follow simple command eomi, pupils is reactive and no face asymmetry moving all extremity sensation is noraml ct and mri of brain reviewed there is 4 enhancing lesion on left frontal lobe SPEECH CONSULT appreciated - able to swallow Assessment- Left frontal lobe masses, likel to be mets, primary ? lung mass Plan- Suggest to oncologist consult - over all prognosis is guarded - spoke to primary team , family do not wishes aggressive treatment - suggest to give one dose of dexamethasone 10 mg iv once and than 4 mg iv tid - no need for AED -Further definitive treatment as per oncologist and family wishes Thanking you so much Willy Osorio MD
[2018-02-17] MEDS ORDERED: DEXAMETHASONE 0.5 MG TABLET PO ONE (17:45)
[2018-02-17] MEDS ORDERED: DEXAMETHASONE 4 MG TABLET (FP) PO ONE (18:00)
[2018-02-18] MEDS: DEXAMETHASONE 4 MG TABLET (FP) PO SCH ×3 (06:06→22:00)
--- NOTE | 2018-02-18 08:52 | PN ---
Progress Note, Physician History of Present Illness: Awake, responsive Mildly confused No complaints Denies chest pain/ dyspnea/ cough No c/o fever/ chills CT findings noted - Current Medication List Current Medications: Active Medications Dexamethasone (Decadron -) 4 mg PO TID [facility] Last Admin: 02/18/18 06:06 Dose: 4 mg Hydrochlorothiazide (Hctz -) 25 mg PO DAILY [facility] Azithromycin (Zithromax 500mg Ivpb (Pre-Docked)) 250 mls @ 250 mls/hr IVPB DAILY [facility] CEFTRIAXONE 1 G/50 ML PREMIX (Ceftriaxone 1 Gm-D5w Bag) 50 mls @ 100 mls/hr IVPB DAILY [facility] Lisinopril (Prinivil) 10 mg PO DAILY [facility] Verapamil HCl (Calan Sr -) 240 mg PO DAILY [facility] - Objective Vital Signs: Vital Signs Temperature 97.9 F 02/18/18 06:00 Pulse Rate 80 02/18/18 06:00 Respiratory Rate 18 02/18/18 06:00 Blood Pressure 115/64 02/18/18 06:00 O2 Sat by Pulse Oximetry (%) 91 L 02/18/18 06:00 Constitutional: Yes: No Distress Eyes: Yes: Conjunctiva Clear Cardiovascular: Yes: Regular Rate and Rhythm, S1, S2 Respiratory: No: Other (+rales R base) Gastrointestinal: Yes: Normal Bowel Sounds, Soft. 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 Percutaneous vs. transbronchial lung bx
[2018-02-18] MEDS: LISINOPRIL 10 MG TABLET (FP) PO SCH (09:54)
[2018-02-18] MEDS: HYDROCHLOROTHIAZIDE 25 MG TABLET (FP) PO SCH (09:54)
[2018-02-18] MEDS: VERAPAMIL HCL 240 MG E.R. TABLET (FP) PO SCH (09:54)
--- NOTE | 2018-02-18 09:57 | EKG ---
Test Reason : Blood Pressure : / mmHG Vent. Rate : 086 BPM Atrial Rate : 086 BPM P-R Int : 144 ms QRS Dur : 064 ms QT Int : 380 ms P-R-T Axes : 030 060 022 degrees QTc Int : 454 ms NORMAL SINUS RHYTHM SEPTAL INFARCT , AGE UNDETERMINED ABNORMAL ECG NO PREVIOUS ECGS AVAILABLE Confirmed by FARIHA DOMINGUEZ, KIERSTEN ([id number]) on 02/18/2018 9:57:43 AM Referred By: MONTSERRAT Confirmed By:KIERSTEN FRIED MD
[2018-02-18] MEDS ORDERED: AZITHROMYCIN IVPB 250 ML IVPB SCH (10:00)
[2018-02-18] MEDS ORDERED: PATIENT'S OWN MEDICATION (NON-FORMULARY) (Verapamil Hcl [Verapamil Er] 240 MG) PO SCH (10:00)
[2018-02-18] MEDS: CEFTRIAXONE 1 G/50 ML PREMIX 50 ML IVPB SCH (10:01)
--- NOTE | 2018-02-18 12:29 | PN ---
Physical Exam: SUBJECTIVE: Patient seen and examined, sitting in bedside chair, son and grandson at bedside, son reports patient's mentation is closer to baseline. OBJECTIVE: patient is a 87yM with PMH HTN and prostate CA (on hormone therapy) , patient was admitted from the emergency department for AMS secondary to metastic CA. Vital Signs Period Temp Pulse Resp BP Sys/Hoffman Pulse Ox Last 24 Hr 97.8 F-98.7 F 67-88 16-18 115-128/55-69 91-95 GENERAL: The patient is awake, alert, and fully oriented, in no acute distress. HEAD: Normal with no signs of trauma. EYES: PERRL, extraocular movements intact, sclera anicteric, conjunctiva clear. No ptosis. ENT: Ears normal, nares patent, oropharynx clear without exudates, moist mucous membranes. NECK: Trachea midline, full range of motion, supple. LUNGS: Breath sounds equal, course rhonchi bilaterally throughout, with mild inspiratory wheeze, no crackles, no accessory muscle use. HEART: Regular rate and rhythm, S1, S2 without murmur, rub or gallop. ABDOMEN: Soft, nontender, nondistended, normoactive bowel sounds, no guarding, no rebound, no hepatosplenomegaly, no masses. EXTREMITIES: 2+ pulses, warm, well-perfused, no edema. NEUROLOGICAL: Cranial nerves II through XII grossly intact. Normal speech, gait not observed. PSYCH: Normal mood, normal affect. SKIN: Warm, dry, normal turgor, no rashes or lesions noted Active Medications Generic Name Dose Route Start Last Admin Trade Name Freq PRN Reason Stop Dose Admin Dexamethasone 4 mg 02/18/18 06:00 02/18/18 06:06 Decadron - PO 4 mg TID [facility] Administration Hydrochlorothiazide 25 mg 02/18/18 10:02/18/18 09:54 Hctz - PO 25 mg DAILY [facility] Administration Azithromycin 250 mls @ 250 mls/hr 02/18/18 10:00 02/18/18 10:01 Zithromax 500mg Ivpb (Pre-Docked) IVPB 250 mls/hr DAILY [facility] Administration CEFTRIAXONE 1 G/50 ML PREMIX 50 mls @ 100 mls/hr 02/18/18 10:00 02/18/18 10: 01 Ceftriaxone 1 Gm-D5w Bag IVPB 100 mls/hr DAILY [facility] Administration Lisinopril 10 mg 02/18/18 10:00 02/18/18 09:54 Prinivil PO 10 mg DAILY [facility] Administration Verapamil HCl 240 mg 02/18/18 10:00 02/18/18 09:54 Calan Sr - PO 240 mg DAILY [facility] Administration Radiology Reports CT head IMPRESSION: Areas of vasogenic edema within the left frontal and right parietal lobes consistent with intracerebral mass lesions, probably metastatic in nature. MRI follow-up recommended. Please see above discussion. Reported By: Olu Springer MD 02/16/181820 Chest xray IMPRESSION: Right lower lobe consolidation Reported By: Olu Springer MD 02/16/1818[address] chest [address] impression: left lower lobe mass with infiltrate MRI of brain impression: four lesions with surrounding edema, most likely metastic, largest is located within the left frontal lobe with extensive surrounding edema reported by: Dr Rogers ASSESSMENT/PLAN: 87yM with PMH HTN and prostate CA (on hormone therapy) presented to the ED with AMS and cough x 1.5 weeks. 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 Dispo: Pt currently requires further inpatient management of his emergent condition. Visit type - Emergency Visit Emergency Visit: Yes ED Registration Date: 02/16/18 Care time: The patient presented to the Emergency Department on the above date and was hospitalized for further evaluation of their emergent condition. - New Patient This patient is new to me today: Yes Date on this admission: 02/18/18 - Critical Care Critical Care patient: No - Discharge Referral Referred to [facility] Med P.C.: No
[2018-02-18] MEDS: ALBUTEROL SO4 2.5/IPRATROPIUM 0.5 INH SOL 3 ML VIAL.NEB. NEB SCH ×3 (13:56→20:00)
[2018-02-19] MEDS: DEXAMETHASONE 4 MG TABLET (FP) PO SCH ×2 (06:20→13:16)
[2018-02-19] MEDS: ALBUTEROL SO4 2.5/IPRATROPIUM 0.5 INH SOL 3 ML VIAL.NEB. NEB SCH ×3 (08:00→16:51)
[2018-02-19 08:47] LABS: HEMATOCRIT 39.5 % (35.4-49); HEMOGLOBIN 13.1 GM/dl (11.7-16.9); MCH 27.8 pg (25.7-33.7); MCHC 33.3 g/dl (32.0-35.9); MEAN CELL VOLUME 83.4 fl (80-96); MEAN PLT VOLUME 7.6 fl (7.5-11.1); PLATELET COUNT 426 K/MM3 (134-434); RBC 4.74 M/mm3 (4.00-5.60); RDW 12.7 % (11.9-15.9); WHITE BLOOD COUNT 19.2 K/mm3 (4.0-10.8)
[2018-02-19 08:58] LABS: ANION GAP 12 (8-16); BLOOD UREA NITROGEN 40 mg/dl (7-18); CALCIUM 9.5 mg/dl (8.4-10.2); CHLORIDE 100 mmol/L (98-107); CO2 26 mmol/L (22-28); CREATININE 1.1 mg/dl (0.6-1.3); GLUCOSE,RANDOM 130 mg/dl (74-106); MAGNESIUM 2.2 mg/dL (1.8-2.4); PHOSPHOROUS 4.9 mg/dl (2.5-4.6); SODIUM 138 mmol/L (136-145)
--- NOTE | 2018-02-19 09:16 | PN ---
Physical Exam: SUBJECTIVE: Patient seen and examined OBJECTIVE: Vital Signs Period Temp Pulse Resp BP Sys/Hoffman Pulse Ox Last 24 Hr 97.3 F-98.6 F 75-94 18-19 113-117/45-64 90-96 GENERAL: The patient is awake, alert, and fully oriented, in no acute distress. HEAD: Normal with no signs of trauma. EYES: PERRL, extraocular movements intact, sclera anicteric, conjunctiva clear. No ptosis. ENT: Ears normal, nares patent, oropharynx clear without exudates, moist mucous membranes. NECK: Trachea midline, full range of motion, supple. LUNGS: Breath sounds equal, clear to auscultation bilaterally, no wheezes, no crackles, no accessory muscle use. HEART: Regular rate and rhythm, S1, S2 without murmur, rub or gallop. ABDOMEN: Soft, nontender, nondistended, normoactive bowel sounds, no guarding, no rebound, no hepatosplenomegaly, no masses. EXTREMITIES: 2+ pulses, warm, well-perfused, no edema. NEUROLOGICAL: Cranial nerves II through XII grossly intact. Normal speech, gait not observed. PSYCH: Normal mood, normal affect. SKIN: Warm, dry, normal turgor, no rashes or lesions noted Laboratory Results - last 24 hr 02/19/18 07:15 WBC 19.2 H D RBC 4.74 Hgb 13.1 Hct 39.5 MCV 83.4 MCH 27.8 MCHC 33.3 RDW 12.7 Plt Count 426 D MPV 7.6 Neutrophils % No Result Required. Lymphocytes % No Result Required. Active Medications Generic Name Dose Route Start Last Admin Trade Name Cynthia PRN Reason Stop Dose Admin Albuterol/Ipratropium 1 amp 02/18/18 12:45 02/18/18 20:00 Duoneb - NEB 1 amp RQID [facility] Administration Dexamethasone 4 mg 02/18/18 06:00 02/19/18 06:20 Decadron - PO 4 mg TID [facility] Administration Hydrochlorothiazide 25 mg 02/18/18 10:00 02/18/18 09:54 Hctz - PO 25 mg DAILY [facility] Administration CEFTRIAXONE 1 G/50 ML PREMIX 50 mls @ 100 mls/hr 02/18/18 10:00 02/18/18 10: 01 Ceftriaxone 1 Gm-D5w Bag IVPB 100 mls/hr DAILY [facility] Administration Lisinopril 10 mg 02/18/18 10:00 02/18/18 09:54 Prinivil PO 10 mg DAILY [facility] Administration Verapamil HCl 240 mg 02/18/18 10:00 02/18/18 09:54 Calan Sr - PO 240 mg DAILY [facility] Administration ASSESSMENT/PLAN:
--- NOTE | 2018-02-19 09:16 | PN ---
Progress Note, Physician History of Present Illness: Awake, responsive OOB in chair Offers no compaints Denies chest pain/ dyspnea/ cough No c/o fever/ chills MRI findings noted - Current Medication List Current Medications: Active Medications Albuterol/Ipratropium (Duoneb -) 1 amp NEB RQID [facility] Last Admin: 02/18/18 20:00 Dose: 1 amp Dexamethasone (Decadron -) 4 mg PO TID [facility] Last Admin: 02/19/18 06:20 Dose: 4 mg Hydrochlorothiazide (Hctz -) 25 mg PO DAILY [facility] Last Admin: 02/18/18 09:54 Dose: 25 mg CEFTRIAXONE 1 G/50 ML PREMIX (Ceftriaxone 1 Gm-D5w Bag) 50 mls @ 100 mls/hr IVPB DAILY [facility] Last Admin: 02/18/18 10:01 Dose: 100 mls/hr Lisinopril (Prinivil) 10 mg PO DAILY [facility] Last Admin: 02/18/18 09:54 Dose: 10 mg Verapamil HCl (Calan Sr -) 240 mg PO DAILY [facility] Last Admin: 02/18/18 09:54 Dose: 240 mg - Objective Vital Signs: Vital Signs Temperature 97.4 F L 02/19/18 06:40 Pulse Rate 75 02/19/18 06:40 Respiratory Rate 19 02/19/18 06:40 Blood Pressure 117/64 02/19/18 06:40 O2 Sat by Pulse Oximetry (%) 96 02/19/18 06:40 Constitutional: Yes: No Distress Eyes: Yes: Conjunctiva Clear Neck: Yes: Supple Cardiovascular: Yes: Regular Rate and Rhythm, S1, S2 Respiratory: Yes: Other (few crepitations R base- improved) Gastrointestinal: Yes: Normal Bowel Sounds, Soft. 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 Percutaneous vs. transbronchial lung bx
[2018-02-19] MEDS: CEFTRIAXONE 1 G/50 ML PREMIX 50 ML IVPB SCH (09:18)
[2018-02-19] MEDS: HYDROCHLOROTHIAZIDE 25 MG TABLET (FP) PO SCH (09:20)
[2018-02-19] MEDS: VERAPAMIL HCL 240 MG E.R. TABLET (FP) PO SCH (09:20)
[2018-02-19] MEDS: LISINOPRIL 10 MG TABLET (FP) PO SCH (09:20)
--- NOTE | 2018-02-19 16:24 | DS ---
Physical Exam: SUBJECTIVE: Patient seen and examined, ambulatory at bedside, steady gait noted , patient reports feeling well, denies any symptoms OBJECTIVE:This is a 87 y/o man with a PMHx of HTN, Prostate Ca (hormone therapy) . Who presents to the ED with family for AMS. Per family, the patient has not been acting like his baseline, increased confusion. At bedside, patient is alert to name, birthdate, place only. Patient denies fever, chills, cough, SOB, CP, palpitations, CP, AP, N/V/D, constipation , dysuria. Vital Signs Period Temp Pulse Resp BP Sys/Hoffman Pulse Ox Last 24 Hr 97.4 F-98.6 F 75-81 18-19 114-117/45-64 90-96 PHYSICAL EXAM GENERAL: The patient is awake, alert, and fully oriented, in no acute distress. HEAD: Normal with no signs of trauma. EYES: PERRL, extraocular movements intact, sclera anicteric, conjunctiva clear. No ptosis. ENT: Ears normal, nares patent, oropharynx clear without exudates, moist mucous membranes. NECK: Trachea midline, full range of motion, supple. LUNGS: Breath sounds equal, course rhonchi bilaterally throughout, no wheeze, no crackles, no accessory muscle use. HEART: Regular rate and rhythm, S1, S2 without murmur, rub or gallop. ABDOMEN: Soft, nontender, nondistended, normoactive bowel sounds, no guarding, no rebound, no hepatosplenomegaly, no masses. EXTREMITIES: 2+ pulses, warm, well-perfused, no edema. NEUROLOGICAL: Cranial nerves II through XII grossly intact. Normal speech, gait not observed. PSYCH: Normal mood, normal affect. SKIN: Warm, dry, normal turgor, no rashes or lesions noted LABS Laboratory Results - last 24 hr 02/19/18 02/19/18 07:15 07:15 WBC 19.2 H D RBC 4.74 Hgb 13.1 Hct 39.5 MCV 83.4 MCH 27.8 MCHC 33.3 RDW 12.7 Plt Count 426 D MPV 7.6 Neutrophils % No Result Required. Neutrophils % (Manual) 90.0 H Band Neutrophils % 2.0 Lymphocytes % No Result Required. Lymphocytes % (Manual) 7.0 L Monocytes % (Manual) 1 L Sodium 138 Potassium 4.0 Chloride 100 Carbon Dioxide 26 Anion Gap 12 BUN 40 H D Creatinine 1.1 D Random Glucose 130 H D Calcium 9.5 Phosphorus 4.9 H Magnesium 2.2 Microbiology 02/17/18 08:18 Blood - Peripheral Venous Blood Culture - Preliminary NO GROWTH OBTAINED AFTER 48 HOURS, INCUBATION TO CONTINUE FOR 3 DAYS. 02/17/18 08:24 Blood - Peripheral Venous Blood Culture - Preliminary NO GROWTH OBTAINED AFTER 48 HOURS, INCUBATION TO CONTINUE FOR 3 DAYS. 02/17/18 17:33 Urine For Antigen Detection Legionella Antigen - Final 02/17/18 17:33 Urine For Antigen Detection Streptococcus pneumoniae Antigen (M - Final, negative 02/16/18 18:56 Urine - Urine Clean Catch Urine Culture - Final NO GROWTH OBTAINED Radiology Reports CT head IMPRESSION: Areas of vasogenic edema within the left frontal and right parietal lobes consistent with intracerebral mass lesions, probably metastatic in nature. MRI follow-up recommended. Please see above discussion. Reported By: Olu Springer MD 02/16/18 1821 Chest xray IMPRESSION: Right lower lobe consolidation Reported By: Olu Springer MD 02/16/[address] impression: left lower lobe mass with infiltrate MRI of brain impression: four lesions with surrounding edema, most likely metastic, largest is located within the left frontal lobe with extensive surrounding edema reported by: Dr Rogers [facility] COURSE: * LL mass/infilitrate wheezing noted on exam, start standing duonebs with symbicort with relief, with zithromax and rocephin. incentive spirometer, Dr Kevin GOMEZ, consulted and followed * metablic encephalopathy, secondary to metastic brain ca, started on decadron with improvement, patient returned to baseline, Dr Castro, oncology consulted, patient will require lung biopsy, patient will require outpatient follow up, neurology, Dr Pablo consulted and followed. * hypertension, b/p at goal continue lisinopril and hctz PLAN - follow up with Dr Castro oncology within 5 days - continue decadron Date of Admission:02/16/18 Date of Discharge: 02/19/18 Minutes to complete discharge: 45 Discharge Summary Reason For Visit: AMS Current Active Problems Altered mental status (Acute) - Instructions - Home Medications Comprehensive Discharge Medication List: Ambulatory Orders Hydrochlorothiazide [Hctz -] 25 mg PO DAILY 02/16/18 Lisinopril 10 mg PO DAILY 02/16/18 Verapamil HCl [Verapamil ER] 240 mg PO DAILY 02/16/18 - Discharge Referral Referred to [facility] No
[2018-02-19 17:38] VITALS: BP 120/64; PULSE 80; TEMP 98.1
--- NOTE | 2018-02-20 16:25 | CONSULT ---
Consult Consult Specialty:: onc Referred by:: brittny salgado Reason for Consultation:: newly jairo'aliyah sutherland - History of Present Illness Chief Complaint: confusion History of Present Illness: Pt seen/examined 02/19 3P pt poor historian and hx obtained per team, chart 87 yom BIBF noting confusion for past 3d. On eval here, noted to have involuntary hand motions. w/u for AMS disclosed several brain mets w edema on MRI and CT evidencing a LLL mass. No hypercalcemia. He was treated w decadron and abx for possib post-obstructive pna. Somewhat improved MS reported, but confusion remains. He is being d/c'd today - History Source History Provided By: Medical Record Limitations to Obtaining History: Dementia - Past Medical History Cardio/Vascular: Yes: HTN Renal/: Yes: Cancer (Prostate (Hormone Therapy)) Heme/Onc: Yes: Other (prostate cancer recieving hormonotx) - Alcohol/Substance Use Hx Alcohol Use: No History of Substance Use: reports: None - Smoking History Smoking history: Never smoked Have you smoked in the past 12 months: No Aproximately how many cigarettes per day: 0 If you are a former smoker, when did you quit?: 1979- - Social History ADL: Family Assistance History of Recent Travel: No Home Medications - Allergies Allergies/Adverse Reactions: Allergies Allergy/AdvReac Type Severity Reaction Status Date / Time No Known Allergies Allergy Verified 02/16/18 17:06 - Home Medications Home Medications: Ambulatory Orders Hydrochlorothiazide [Hctz -] 25 mg PO DAILY 02/16/18 Lisinopril 10 mg PO DAILY 02/16/18 Verapamil HCl [Verapamil ER] 240 mg PO DAILY 02/16/18 Albuterol Sulfate Inhaler - [Ventolin Hfa Inhaler -] 2 inh IN Q4H PRN #1 inh Cefuroxime Axetil [Ceftin -] 500 mg PO Q12H #14 tablet 02/19/18 Dexamethasone [Decadron -] 4 mg PO TID #120 tablet 02/19/18 Physical Exam Vital Signs: Vital Signs Temperature 98.1 F 02/19/18 12:00 Pulse Rate 80 02/19/18 12:00 Respiratory Rate 19 02/19/18 12:00 Blood Pressure 120/64 02/19/18 12:00 O2 Sat by Pulse Oximetry (%) 96 02/19/18 06:40 Constitutional: Yes: Well Nourished, No Distress, Calm Eyes: Yes: WNL HENT: Yes: WNL Neck: Yes: Supple, Other (no LA) Cardiovascular: Yes: Regular Rate and Rhythm Respiratory: Yes: Other (dec bs b/b) Gastrointestinal: Yes: Normal Bowel Sounds, Soft Edema: No Integumentary: Yes: Other (sun damaged areas, scalp lesions ---h/o skin cancer) Neurological: Yes: Alert, Other (oriented to place; does not know year or why in hosp) ...Motor Strength: WNL Labs: CBC, BMP 02/19/18 07:15 02/19/18 07:15 Assessment/Plan clinically c/w met lung cancer in 87 yom. Pt is being d/c home w steroids and will f/u in office Family will consider pursuing bx Suggest rad onc consult d/w team
== END 2018-02-19 17:35 | disposition home or self-care (01) | DRG 54 ==
LOC: FER 17:05 → FM/S 21:35
PROVIDERS: ADMIT Internal Medicine; ATTEND Nurse Practitioner Family
DX: C79.31 Secondary malignant neoplasm of brain (principal); J18.9 Pneumonia, unspecified organism; G93.41 Metabolic encephalopathy; G93.6 Cerebral edema; C78.00 Secondary malignant neoplasm of unspecified lung; I10 Essential (primary) hypertension; C61 Malignant neoplasm of prostate; Z87.891 Personal history of nicotine dependence
CPT/HCPCS: 36415; 70450-TC; 70552-TC; 71045-TC-FY; 71250-TC; 80048; 80053; 81003; 81015; 82140; 82607; 83735; 84100; 85025; 87040; 87086; 87899; 93005; 94640; 99282-25

== ENCOUNTER 2018-03-04 08:36 | Day surgery (SDC) | payer OTHER ==
[2018-03-03 11:00] VITALS: BMI 24.5
[2018-03-04 09:05] LABS: HEMATOCRIT 41.3 % (35.4-49); HEMOGLOBIN 13.7 GM/dL (11.7-16.9); MCH 28.1 pg (25.7-33.7); MCHC 33.2 g/dl (32.0-35.9); MEAN CELL VOLUME 84.7 fl (80-96); MEAN PLT VOLUME 6.6 fl (7.5-11.1); PLATELET COUNT 169 K/MM3 (134-434); RBC 4.88 M/mm3 (4.00-5.60); RDW 14.8 % (11.9-15.9); WHITE BLOOD COUNT 20.5 K/mm3 (4.0-10.0)
[2018-03-04 09:20] LABS: INR 0.96 (0.82-1.09); PROTHROMBIN TIME (PATIENT) 10.8 SEC (9.98-11.88)
[2018-03-04 09:36] VITALS: TEMP 98.2
[2018-03-04 11:05] LABS: ANISOCYTOSIS 0; MACROCYTOSIS 0
[2018-03-04 11:13] LABS: PLATELET ESTIMATE ADEQUATE
[2018-03-04 14:18] VITALS: PULSE 72
[2018-03-04 15:59] VITALS: BP 134/64
--- NOTE | 2018-03-05 16:46 | PATH ---
Surgical Pathology Report Patient Name: MANNY RIOS [facility]. Rec. #: [id number] /Age/Gender: 1930 (Age: 87) / M Account: [id number] Location: RADIOLOGY Taken: 03/04/2018 Received: 03/04/2018 Reported: 03/05/2018 Physicians: Tay Simpson M.D. 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 Comment: Immunohistochemical stains performed and interpreted at [facility] show the following results: The neoplastic cells stain with AE1/3 and CK7, with focal coexpression of CK20. TTF-1 is positive. P63 is negative. Although CK20 coexpression is unusual in lung cancer, the TTF-1 positivity is most consistent with lung origin. This case was discussed with Dr. Weiss on March 05, 2018. Assay for PD-L1 is pending, and a report will follow. Additional molecular assays can be ordered if requested. Electronically Signed Matthew Perez M.D. Addendum Reported: 03/09/2018 Addendum Diagnosis PD-L1 (DAKO 22C3) immunohistochemical stain performed and interpreted at [facility] [place], [place] ([id number]) RESULTS: HIGH PD-L1 EXPRESSION, TPS 80%. TUMOR PROPORTION SCORE (TPS) RESULT: 80% Staining Location: Membranous Staining Distribution: >=50% Staining Intensity: 1+ See [facility] report for details ([id number]). Bailey Pearson M.D. Addendum Reported: 03/24/2018 Addendum Diagnosis FISH REPORT performed and interpreted at [facility] [place], [place] ([id number]) shows the following: INTERPRETATION: No evidence of a rearrangement of ALK (2p23). See [facility] report ([id number]) for additional details. Bailey Pearson M.D. Gross Description Received in formalin labeled "right lung biopsy," are 3 kent, cylindrical portions of soft tissue ranging from 0.4-0.8 cm in length and averaging 0.1 cm in diameter. The specimens are submitted in toto in one cassette. 03/04/201803/04/2018
== END 2018-03-04 15:30 | disposition home or self-care (01) ==
LOC: JRADIR 08:36
PROVIDERS: ATTEND Family Medicine
PROC: 0BBK3ZX Excision of Right Lung, Percutaneous Approach, Diagnostic (ICD-10-PCS; principal; 2018-03-04)
DX: C78.01 Secondary malignant neoplasm of right lung (principal); C61 Malignant neoplasm of prostate; J43.9 Emphysema, unspecified
CPT/HCPCS: 32405; 36415; 71045-TC-FY; 76098-TC-FY; 77012-TC; 85025; 85610; 87899; 88305-TC; 88341-TC; 88342-TC